=== PATIENT | female | born 1980 | race Caucasian/White ===

== ENCOUNTER 2019-11-14 01:12 | Inpatient (IN) | payer BC ==
[~2019-11-14] VITALS: Ht 165.1 cm; Wt 78.6 kg
[2019-11-14 02:07] LABS: BILIRUBIN,URINE NEGATIVE (NEG); CLARITY,URINE CLEAR; COLOR,URINE YELLOW; NITRITE,URINE NEGATIVE (NEG); PROTEIN,URINE NEGATIVE (NEG-TRACE); UROBILINOGEN,URINE 0.2 mg/dL (0.2 mg/dL)
[2019-11-14 02:13] LABS: SQUAMOUS EPITHELIAL CELL,UR FEW /LPF
[2019-11-14 02:14] LABS: AMORPHOUS SEDIMENT,UR PRESENT /HPF; BACTERIA,URINE FEW /HPF (0-FEW); RBC,URINE 0 /HPF (0-2); WBC,URINE 0 /HPF (0-4)
--- NOTE | 2019-11-14 02:17 | PHYS DOC ---
Past Medical History Past Medical History: Other Additional Past Medical Histor: APPENDECTOMY, CYST. Past Surgical History: Appendectomy, Other Additional Past Surgical Histo: CYST REMOVAL TO HEELS Smoking Status: Never Smoker Alcohol Use: None General Adult EDM: Chief Complaint: ABDOMINAL PAIN HPI: HPI: Patient is a 39-year old female presents with a chief complaint of epigastric abdominal pain. Patient states pain started around 2130 hrs. Pain is in the epigastric region diffuse in nature. Patient has associated nausea vomiting and diarrhea. Patient denies any fevers or chills or urinary symptoms. Patient has had a past surgical history of appendectomy. Review of Systems: Review of Systems: Constitutional: Denies fever or chills. [] Eyes: Denies change in visual acuity. [] HENT: Denies nasal congestion or sore throat. [] Respiratory: Denies cough or shortness of breath. [] Cardiovascular: Denies chest pain or edema. [] GI: Positive abdominal pain positive nausea positive vomiting positive diarrhea : Denies dysuria. [] Musculoskeletal: Denies back pain or joint pain. [] Integument: Denies rash. [] Neurologic: Denies headache, focal weakness or sensory changes. [] Endocrine: Denies polyuria or polydipsia. [] Lymphatic: Denies swollen glands. [] Psychiatric: Denies depression or anxiety. [] Heart Score: Risk Factors: Risk Factors: DM, Current or recent (<one month) smoker, HTN, HLP, family history of CAD, obesity. Risk Scores: Score 0 - 3: 2.5% MACE over next 6 weeks - Discharge Home Score 4 - 6: 20.3% MACE over next 6 weeks - Admit for Clinical Observation Score 7 - 10: 72.7% MACE over next 6 weeks - Early Invasive Strategies Current Medications: Current Medications Medications (Trade) Dose Ordered Sig/William Start Time Stop Time Status Last Admin Dose Admin Morphine Sulfate (Morphine Sulfate) 2 mg 1X ONCE 11/14/19 02:30 11/14/19 02:31 Ondansetron HCl (Zofran) 4 mg 1X ONCE 11/14/19 02:30 11/14/19 02:31 Sodium Chloride 1,000 ml @ 1,000 mls/hr 1X ONCE 11/14/19 02:30 11/14/19 03:29 Allergies: Allergies: Allergies Coded Allergies Type Severity Reaction Last Updated Verified No Known Drug Allergies 11/14/19 No Physical Exam: PE: Constitutional: Well developed, well nourished, no acute distress, non-toxic appearance. [Peers uncomfortable] HENT: Normocephalic, atraumatic, bilateral external ears normal, oropharynx moist, no oral exudates, nose normal. [] Eyes EOMI, conjunctiva normal, no discharge. [] Neck: Normal range of motion, no tenderness, supple, no stridor. [] Cardiovascular:Heart rate regular rhythm Lungs & Thorax: No respiratory distress Abdomen: Epigastric abdominal discomfort tender to palpation Skin: Warm, dry, no erythema, no rash. [] Back: No tenderness, no CVA tenderness. [] Extremities: No tenderness, no cyanosis, no clubbing, ROM intact, no edema. [] Neurologic: Alert and oriented X 3, normal motor function, normal sensory function, no focal deficits noted. [] Psychologic: Affect normal, judgement normal, mood normal. [] Current Patient Data: Labs: Laboratory Tests Test 11/14/19 01:50 POC Urine HCG, Qualitative Hcg negative (Negative) Vital Signs: Vital Signs Date Time Temp Pulse Resp B/P (MAP) Pulse Ox O2 Delivery O2 Flow Rate FiO2 11/14/19 01:46 97.5 47 14 166/74 (104) 100 Room Air 97.5 EKG: EKG: [] Radiology/Procedures: Radiology/Procedures: [] Impression: CT scan the abdomen pelvis was done using 75 mL Omnipaque 300 contrast. Lung bases are clear. There is no effusion. A liver lesion is not identified. There is distention of the gallbladder with a gallstone towards the neck of the gallbladder. Spleen and adrenal glands are normal. Pancreas is normal. There is no mass or hydronephrosis in the kidneys. There is scarring in the left kidney. There is no bowel obstruction or ascites. Uterus and ovaries are unremarkable. IMPRESSION: 1. Cholelithiasis with gallbladder distention. 2. Scarring left kidney, no hydronephrosis. 3. No abdominal or pelvic mass. 4. No bowel obstruction. US Cholelithiasis with distended gallbladder and mild thickening of the gallbladder wall suggesting cholecystitis. Course & Med Decision Making: Course & Med Decision Making Pertinent Labs and Imaging studies reviewed. (See chart for details) [] Patient was evaluated for chief complaint. Work-up consisted of laboratory analysis and radiologic imaging. Definitive radiologic study ultrasound shows cholelithiasis with gallbladder wall thickening consistent with acute cholecystitis. Patient was admitted to the hospitalist with general surgery on consult. Discussed patient with Dr. Melendrez @ 0500hrs Krystle Disclaimer: Krystle Disclaimer: This electronic medical record was generated, in whole or in part, using a voice recognition dictation system. Departure Departure Impression: Primary Impression: Abdominal pain Additional Impressions: Cholelithiases Acute cholecystitis Disposition: ADMITTED INPATIENT Referrals: ESCOBAR CEDENO MD (PCP) Justicifation of Admission Dx: Justifications for Admission: Justification of Admission Dx: Yes JOSE CRUZ SARMIENTO I DO Nov 14, 2019 02:17
[2019-11-14 02:20] LABS: BASO % 0 % (0-3); EOS # 0.1 x10^3/uL (0.0-0.7); EOS % 1 % (0-3); HEMATOCRIT 33.5 % (36.0-47.0); HEMOGLOBIN 11.6 g/dL (12.0-15.5); LYMPH # 1.1 x10^3/uL (1.0-4.8); LYMPH % 16 % (24-48); MEAN CORPUSCULAR HEMOGLOBIN 29 pg (25-35); MEAN CORPUSCULAR HGB CONC 35 g/dL (31-37); MEAN CORPUSCULAR VOLUME 85 fL (79-100); MONO # 0.4 x10^3/uL (0.0-1.1); MONO % 5 % (0-9); NEUT # 5.2 x10^3/uL (1.8-7.7); NEUT % 78 % (31-73); PLATELET COUNT 180 x10^3/uL (140-400); RED BLOOD COUNT 3.95 x10^6/uL (3.50-5.40); RED CELL DISTRIBUTION WIDTH 13.9 % (11.5-14.5); WHITE BLOOD COUNT 6.7 x10^3/uL (4.0-11.0)
[2019-11-14 02:27] LABS: CREATININE 0.9 mg/dL (0.6-1.0); GFR 69.3; POTASSIUM 3.5 mmol/L (3.5-5.1)
[2019-11-14] MEDS ORDERED: MORPHINE SULFATE 2 MG/ML VIAL. IV ONE (02:30)
[2019-11-14] MEDS ORDERED: CONTRAST GIVEN. MC PRN (02:30)
[2019-11-14] MEDS ORDERED: IV NORMAL SALINE 1000ML BAG 1,000 ML IV ONE (02:30)
[2019-11-14] MEDS ORDERED: ONDANSETRON PF 4 MG/2 ML VIAL. IVP ONE (02:30)
[2019-11-14 02:33] LABS: ALBUMIN 3.8 g/dL (3.4-5.0); ALBUMIN/GLOBULIN RATIO 1.1 (1.0-1.7); TOTAL BILIRUBIN 0.3 mg/dL (0.2-1.0); TOTAL PROTEIN 7.4 g/dL (6.4-8.2)
[2019-11-14] MEDS ORDERED: IOHEXOL 300 MG/ML 100ML VIAL. IV ONE (03:00)
--- NOTE | 2019-11-14 03:09 | RAD ---
CT abdomen pelvis with contrast. HISTORY: Abdominal pain CT scan the abdomen pelvis was done using 75 mL Omnipaque 300 contrast. Lung bases are clear. There is no effusion. A liver lesion is not identified. There is distention of the gallbladder with a gallstone towards the neck of the gallbladder. Spleen and adrenal glands are normal. Pancreas is normal. There is no mass or hydronephrosis in the kidneys. There is scarring in the left kidney. There is no bowel obstruction or ascites. Uterus and ovaries are unremarkable. IMPRESSION: 1. Cholelithiasis with gallbladder distention. 2. Scarring left kidney, no hydronephrosis. 3. No abdominal or pelvic mass. 4. No bowel obstruction. PQRS Compliance Statement: One or more of the following individualized dose reduction techniques were utilized for this examination: 1. Automated exposure control 2. Adjustment of the mA and/or kV according to patient size 3. Use of iterative reconstruction technique Electronically signed by: Reji Sesay MD (11/14/2019 3:06 AM) [id number]
[2019-11-14] MEDS ORDERED: MORPHINE SULFATE 4 MG/ML VIAL. IV ONE (03:30)
[2019-11-14] MEDS: METOCLOPRAMIDE HCL 10 MG/2 ML VIAL. IVP ONE ×2 (03:32→04:00)
--- NOTE | 2019-11-14 04:13 | RAD ---
Ultrasound the abdomen limited. HISTORY: Right upper quadrant abdominal pain Ultrasound was used to evaluate the right upper quadrant of the abdomen. Pancreas was normal in appearance. Liver is within normal limits in size and appearance. A focal liver lesion was not identified. There is a prominent gallstone in the gallbladder. There is mild gallbladder wall thickening. Gallbladder was distended. Common duct was upper normal at 6 mm. Right kidney was 11 cm in length without hydronephrosis. IMPRESSION: 1. Cholelithiasis with distended gallbladder and mild thickening of the gallbladder wall suggesting cholecystitis. Electronically signed by: Reji Sesay MD (11/14/2019 4:10 AM) [id number]
[2019-11-14] MEDS ORDERED: PIPERACILLIN/TAZOBACTAM 4.5 GM in IV NORMAL SALINE 100ML 100 ML IV ONE (05:00)
[2019-11-14] MEDS ORDERED: HYDROmorphone 2 MG/ML VIAL IV ONE (05:00)
[2019-11-14] MEDS: IV RINGERS,LACTATED 1000ML 1,000 ML IV SCH ×2 (09:01→17:00)
[2019-11-14] MEDS ORDERED: LEVO75TA90 PO (09:12)
[2019-11-14] MEDS ORDERED: LIOT5TAB4 PO (09:12)
[2019-11-14] MEDS ORDERED: [UNRECOGNIZED DRUG - CODE] PO (09:12)
[2019-11-14] MEDS ORDERED: MAGN500C10 PO (09:12)
[2019-11-14] MEDS ORDERED: FLUV50TA2 PO (09:12)
[2019-11-14] MEDS ORDERED: PROCHLORPERAZINE 10 MG/2 ML VIAL. IV PRN (09:15)
[2019-11-14] MEDS ORDERED: MORPHINE SULFATE 2 MG/ML VIAL. IV PRN (09:15)
[2019-11-14] MEDS ORDERED: ONDANSETRON PF 4 MG/2 ML VIAL. IV PRN (09:15)
[2019-11-14] MEDS ORDERED: LIDOCAINE 1% PF 2 ML VIAL. ID PRN (09:15)
[2019-11-14] MEDS ORDERED: fentaNYL PF VIAL 100 MCG/2 ML VIAL IV PRN ×2 (09:15)
[2019-11-14] MEDS ORDERED: HYDROmorphone 2 MG/ML VIAL IV PRN (09:15)
--- NOTE | 2019-11-14 11:03 | NUR ---
SW following. Discussed with RN, pt from home, room air, surgery pending COVID-19 result. RN advised no SW needs. SW will continue to follow should any discharge needs arise.
[2019-11-14 11:15] VITALS: BP 147/87
--- NOTE | 2019-11-14 11:41 | HP ---
ADMIT DATE: 11/14/2019 CHIEF COMPLAINT: Abdominal pain, nausea, vomiting. HISTORY OF PRESENT ILLNESS: The patient is a pleasant 39-year-old female who presented with the above chief complaint. Basically, she has had abdominal pain for a couple of days. It got worse last night at about 9:30. She had some associated nausea. We did some imaging. It is showing she has gallstones. We have admitted the patient. She is now going for surgery this afternoon. PAST MEDICAL AND SURGICAL HISTORY: Appendectomy and heel cyst. ALLERGIES: None. FAMILY HISTORY: Diabetes. SOCIAL HISTORY: She does not drink, smoke or take drugs. 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 MEDICATIONS: Reviewed. Please refer to the MRAD. REVIEW OF SYSTEMS: GENERAL: No history of weight change, weakness or fevers. SKIN: No bruising, hair changes or rashes. EYES: No blurred, double or loss of vision. NOSE AND THROAT: No history of nosebleeds, hoarseness or sore throat. HEART: No history of palpitations, chest pain or shortness of breath on exertion. LUNGS: Denies cough, hemoptysis, wheezing or shortness of breath. GASTROINTESTINAL: She complains of abdominal pain and nausea. Denies changes in appetite, vomiting, diarrhea or constipation. GENITOURINARY: No history of frequency, urgency, hesitancy or nocturia. NEUROLOGIC: Denies history of numbness, tingling, tremor or weakness. PSYCHIATRIC: No history of panic, anxiety or depression. ENDOCRINE: No history of heat or cold intolerance, polyuria or polydipsia. EXTREMITIES: Denies muscle weakness, joint pain, pain on walking or stiffness. PHYSICAL EXAMINATION: VITAL SIGNS: Within normal limits and are stable. GENERAL: No apparent distress. Alert and oriented. HEENT: Normal cephalic atraumatic, external auditory canals are patent EYES: Extraocular muscles are intact, pupils are equally round and reactive to light and accommodation MUSCULOSKELETAL: Well developed, well nourished, good range of motion ENDOCRINE: No thyromegaly was palpated LYMPHATICS: No cervical chain or axillary nodes were noted HEMATOPOIETIC: No bruising NECK: Supple, no JVD, no thyromegaly was noted. LUNGS: Clear to auscultation in all lung aviles without rhonchi or wheezing. HEART: RRR, S1, S2 present. Peripheral pulses intact, no obvious murmurs were noted. ABDOMEN: Soft. She has right upper quadrant pain to palpation. Positive bowel sounds. No organomegaly. Normal bowel sounds. EXTREMITIES: Without any cyanosis, clubbing, or edema. Pedal pulses intact, Homans sign is negative. NEUROLOGIC: Normal speech, normal tone. A & O x3, moves all extremities, no obvious focal deficits. PSYCHIATRIC: Normal affect, normal mood. Stable. SKIN: She has multiple tattoos. No ulcerations or rashes, good skin turgor, no jaundice. VASCULAR: Good capillary refill, neurovascular bundle appears to be intact. IMAGING: Ultrasound of the abdomen is showing gallstones. LABORATORY DATA: Hemoglobin is 11.6. Transaminases are within normal limits. ASSESSMENT AND PLAN: Symptomatic gallstones. The patient has been admitted. We have given her p.r.n. pain meds and nausea meds. We have consulted General Surgery. She is going to Surgery this afternoon. JUANITA COOK DO DR: MARIBETH/cristal JOB#: [id number] / [id number]
[2019-11-14] MEDS ORDERED: PROPOFOL 10 MG/ML (20ML) VIAL. IV ONE (13:40)
[2019-11-14] MEDS ORDERED: SUCCINYLCHOLINE 200 MG/10 ML VIAL. ONE (13:40)
[2019-11-14] MEDS ORDERED: ROCURONIUM 50 MG/5 ML VIAL. ONE (13:40)
[2019-11-14] MEDS ORDERED: fentaNYL PF VIAL 100 MCG/2 ML VIAL ONE (13:41)
[2019-11-14] MEDS ORDERED: BUTORPHANOL 2 MG/ML VIAL. IV PRN (13:45)
[2019-11-14] MEDS: BUTORPHANOL 2 MG/ML VIAL. IV PRN (13:53)
[2019-11-14] MEDS ORDERED: BUPIVACAINE MPF 0.5% 30 ML VIAL. ONE (14:16)
[2019-11-14] MEDS ORDERED: IOHEXOL 300 MG/ML 50 ML VIAL. ONE (14:16)
[2019-11-14] MEDS ORDERED: MIDAZOLAM HCL/PF 2 MG/2 ML VIAL. ONE (15:39)
[2019-11-14] MEDS ORDERED: GLYCOPYRROLATE 1 MG/5 ML VIAL. ONE (16:09)
[2019-11-14] MEDS ORDERED: NEOSTIGMINE METHYLSULFATE 5 MG/5 ML SYRINGE. ONE (16:38)
--- NOTE | 2019-11-14 16:42 | RAD ---
Examination: CHOLANGIOGRAM INTRAOPERATIVE History: Reason: CHOLANGIOGRAM W/C-ARM FT- 8sec / Spl. Instructions: / History: Comparison/Correlation: 11/14/2019 CT abdomen and pelvis with IV contrast Findings: Fluoroscopy was utilized for a 0.1 seconds. A total of 2 images of the right upper quadrant were provided by fluoroscopy. Cholecystectomy clips are present. Contrast is present within the common bile duct and partially opacified intrahepatic biliary tree. There is no stricture identified. No definite suspicious filling defect within the common duct. Contrast is noted in the duodenum. Impression: Cholecystectomy. No strictures or findings to suggest calculus or other suspicious filling defect. Electronically signed by: Neil Mckinnon MD (11/14/2019 4:39 PM) [id number]
--- NOTE | 2019-11-14 16:57 | PDOC2 ---
CONSULT Date of Consult Date of Consult DATE: 11/14/19 TIME: 16:55 History of Present Illness Reason for Visit: The patient is a 39-year-old female who presented to the emergency department with acute onset of abdominal pain. The pain began last evening and was located in the upper mid abdomen under the rib cage. Her evaluation in the emergency room is consistent with acute cholecystitis. Past Medical History Past Medical History ADD, OCD Past Surgical History Past Surgical History Appendectomy Social History No Current Problem List Problem List Problems Medical Problems: (1) Abdominal pain Status: Acute (2) Acute cholecystitis Status: Acute (3) Cholelithiases Status: Acute Current Medications Current Medications Current Medications Morphine Sulfate (Morphine Sulfate) 2 mg 1X ONCE IV Last administered on 11/14/19at 02:18; Start 11/14/19 at 02:30; Stop 11/14/19 at 02:31; Status DC Ondansetron HCl (Zofran) 4 mg 1X ONCE IVP Last administered on 11/14/19at 02:18; Start 11/14/19 at 02:30; Stop 11/14/19 at 02:31; Status DC Sodium Chloride 1,000 ml @ 1,000 mls/hr 1X ONCE IV Last administered on 11/14/19at 02:23; Start 11/14/19 at 02:30; Stop 11/14/19 at 03:29; Status DC Iohexol (Omnipaque 300 Mg/ml) 75 ml 1X ONCE IV Last administered on 11/14/19at 02:51; Start 11/14/19 at 03:00; Stop 11/14/19 at 03:01; Status DC Info (CONTRAST GIVEN -- Rx MONITORING) 1 each PRN DAILY PRN MC SEE COMMENTS; Start 11/14/19 at 02:30; Stop 11/16/19 at 02:29 Morphine Sulfate (Morphine Sulfate) 4 mg 1X ONCE IV Last administered on 11/14/19at 03:20; Start 11/14/19 at 03:30; Stop 11/14/19 at 03:31; Status DC Metoclopramide HCl (Reglan Vial) 10 mg 1X ONCE IVP ; Start 11/14/19 at 04:00; Stop 11/14/19 at 04:01; Status DC Hydromorphone HCl (Dilaudid) 1 mg 1X ONCE IV Last administered on 11/14/19at 04:37; Start 11/14/19 at 05:00; Stop 11/14/19 at 05:01; Status DC Piperacillin Sod/ Tazobactam Sod 4.5 gm/Sodium Chloride 100 ml @ 200 mls/hr 1X ONCE IV Last administered on 11/14/19at 04:46; Start 11/14/19 at 05:00; Stop 11/14/19 at 05:29; Status DC Ondansetron HCl (Zofran) 4 mg PRN Q6HRS PRN IV NAUSEA/VOMITING Last administered on 11/14/19at 13:52; Start 11/14/19 at 09:15; Stop 11/15/19 at 09:14 Fentanyl Citrate (Fentanyl 2ml Vial) 25 mcg PRN Q5MIN PRN IV MILD PAIN 1-3; Start 11/14/19 at 09:15; Stop 11/15/19 at 09:14 Fentanyl Citrate (Fentanyl 2ml Vial) 50 mcg PRN Q5MIN PRN IV MODERATE TO SEVERE PAIN; Start 11/14/19 at 09:15; Stop 11/15/19 at 09:14 Morphine Sulfate (Morphine Sulfate) 1 mg PRN Q10MIN PRN IV SEVERE PAIN 7-10; Start 11/14/19 at 09:15; Stop 11/15/19 at 09:14 Ringer's Solution 1,000 ml @ 30 mls/hr Q24H IV ; Start 11/14/19 at 09:01; Stop 11/14/19 at 21:00 Lidocaine HCl (Xylocaine-Mpf 1% 2ml Vial) 2 ml PRN 1X PRN ID PRIOR TO IV START; Start 11/14/19 at 09:15; Stop 11/15/19 at 09:14 Hydromorphone HCl (Dilaudid) 0.5 mg PRN Q10MIN PRN IV SEV PAIN, Second choice; Start 11/14/19 at 09:15; Stop 11/15/19 at 09:14 Prochlorperazine Edisylate (Compazine) 5 mg PACU PRN PRN IV NAUSEA, MRX1; Start 11/14/19 at 09:15; Stop 11/15/19 at 09:14 Propofol (Diprivan) 200 mg STK-MED ONCE IV ; Start 11/14/19 at 13:40; Stop 11/14/19 at 13:40; Status DC Succinylcholine Chloride (Anectine) 200 mg STK-MED ONCE .ROUTE ; Start 11/14/19 at 13:40; Stop 11/14/19 at 13:41; Status DC Rocuronium [place] (Zemuron) 50 mg STK-MED ONCE .ROUTE ; Start 11/14/19 at 13:40; Stop 11/14/19 at 13:41; Status DC Fentanyl Citrate (Fentanyl 2ml Vial) 100 mcg STK-MED ONCE .ROUTE ; Start 11/14/19 at 13:41; Stop 11/14/19 at 13:41; Status DC Butorphanol Tartrate (Stadol) 2 mg PRN Q6HRS PRN IV PAIN Last administered on 11/14/19at 13:53; Start 11/14/19 at 13:45 Butorphanol Tartrate (Stadol) 1 mg PRN Q6HRS PRN IV PAIN; Start 11/14/19 at 13:45 Iohexol (Omnipaque 300 Mg/ml) 50 ml STK-MED ONCE .ROUTE Last administered on 11/14/19at 16:08; Start 11/14/19 at 14:16; Stop 11/14/19 at 14:17; Status DC Bupivacaine HCl (Sensorcaine Mpf 0.5%) 30 ml STK-MED ONCE .ROUTE Last administered on 11/14/19at 16:08; Start 11/14/19 at 14:16; Stop 11/14/19 at 14:17; Status DC Midazolam HCl (Versed) 2 mg STK-MED ONCE .ROUTE ; Start 11/14/19 at 15:39; Stop 11/14/19 at 15:39; Status DC Glycopyrrolate (Robinul) 1 mg STK-MED ONCE .ROUTE ; Start 11/14/19 at 16:09; Stop 11/14/19 at 16:09; Status DC Neostigmine [place] (Neostigmine Methylsulfate) 5 mg STK-MED ONCE .ROUTE ; Start 11/14/19 at 16:38; Stop 11/14/19 at 16:39; Status DC Active Scripts Active Reported Liothyronine Sodium 5 Mcg Tablet 5 Mcg PO DAILY Magnesium (Magnesium Oxide) 500 Mg Capsule 500 Mg PO HS Fluvoxamine Maleate 50 Mg Tablet 50 Mg PO BID Adderall 12.5 Mg Tablet (Dextroamphetamine/Amphetamine) 12.5 Mg Tablet 12.5 Mg PO DAILY Synthroid (Levothyroxine Sodium) 75 Mcg Tablet 75 Mcg PO DAILYAC Allergies Allergies: Coded Allergies: No Known Drug Allergies (Unverified , 11/14/19) ROS General: No: Chills, Night Sweats, Fatigue, Malaise, Appetite, Other PSYCHOLOGICAL ROS: No: Anxiety, Behavioral Disorder, Concentration difficultie, Decreased libido, Depression, Disorientation, Hallucinations, Hostility, Irritablity, Memory difficulties, Mood Swings, Obsessive thoughts, Physical a buse, Sexual abuse, Sleep disturbances, Suicidal ideation, Other Eyes: No Blurry vision, No Decreased vision, No Double vision, No Dry eyes, No Excessive tearing, No Eye Pain, No Itchy Eyes, No Loss of vision, No Photophobia, No Scotomata, No Uses contacts, No Uses glasses, No Other HEENT: No: Heacaches, Visual Changes, Hearing change, Nasal congestion, Nasal discharge, Oral lesions, Sinus pain, Sore Throat, Epistaxis, Sneezing, Snoring, Tinnitus, Vertigo, Vocal changes, Other ALLERGY AND IMMUNOLOGY: No: Hives, Insect Bite Sensitivity, Itchy/Watery Eyes, Nasal Congestion, Post Nasal Drip, Seasonal Allergies, Other Hematological and Lymphatic: No: Bleeding Problems, Blood Clots, Blood Transfusions, Brusing, Night Sweats, Pallor, Swollen Lymph Nodes, Other ENDOCRINE: No: Breast Changes, Galactorrhea, Hair Pattern Changes, Hot Flashes, Malaise/lethargy, Mood Swings, Palpitations, Polydipsia/polyuria, Skin Changes, Temperature Intolerance, Unexpected Weight Changes, Other Respiratory: No: Cough, Hemoptysis, Orthopnea, Pleuritic Pain, Shortness of breath, SOB with excertion, Sputum Changes, Stridor, Tachypnea, Wheezing, Other Cardiovascular: No Chest Pain, No Palpitations, No Orthopnea, No Paroxysmal Noc. Dyspnea, No Edema, No Lt Headedness, No Other Gastrointestinal: Yes Abdominal Pain Genitourinary: No Dysuria, No Frequency, No Incontinence, No Hematuria, No Retention, No Discharge, No Urgency, No Pain, No Flank Pain, No Other, No , No , No , No , No , No , No Musculoskeletal: No Gait Disturbance, No Joint Pain, No Joint Stiffness, No Joint Swelling, No Muscle Pain, No Muscular Weakness, No Pain In:, No Swelling In:, No Other Neurological: No Behavorial Changes, No Bowel/Bladder ControlChng, No Confusion, No Dizziness, No Gait Disturbance, No Headaches, No Impaired Coord/balance, No Memory Loss, No Numbness/Tingling, No Seizures, No Speech Problems, No Tremors, No Visual Changes, No Weakness, No Other Skin: No Dry Skin, No Eczema, No Hair Changes, No Lumps, No Mole Changes, No Mottling, No Nail Changes, No Pruritus, No Rash, No Skin Lesion Changes, No Other, No Acne Physical Exam General: Alert, Oriented X3, Cooperative HEENT: Atraumatic Lungs: Clear to auscultation Abdomen: Soft (Tender to palpation the right upper quadrant with guarding) Extremities: No clubbing, No cyanosis Skin: No rashes Neuro: Normal speech Psych/Mental Status: Mental status NL Vitals VITALS Vital Signs Date Time Temp Pulse Resp B/P (MAP) Pulse Ox O2 Delivery O2 Flow Rate FiO2 11/14/19 15:28 87 20 122/72 99 Room Air 11/14/19 15:00 97.6 97.6 Labs Labs Laboratory Tests Test 11/14/19 01:11 11/14/19 01:32 11/14/19 01:50 11/14/19 05:07 White Blood Count 6.7 x10^3/uL (4.0-11.0) Red Blood Count 3.95 x10^6/uL (3.50-5.40) Hemoglobin 11.6 g/dL (12.0-15.5) Hematocrit 33.5 % (36.0-47.0) Mean Corpuscular Volume 85 fL (79-100) Mean Corpuscular Hemoglobin 29 pg (25-35) Mean Corpuscular Hemoglobin Concent 35 g/dL (31-37) Red Cell Distribution Width 13.9 % (11.5-14.5) Platelet Count 180 x10^3/uL (140-400) Neutrophils (%) (Auto) 78 % (31-73) Lymphocytes (%) (Auto) 16 % (24-48) Monocytes (%) (Auto) 5 % (0-9) Eosinophils (%) (Auto) 1 % (0-3) Basophils (%) (Auto) 0 % (0-3) Neutrophils # (Auto) 5.2 x10^3/uL (1.8-7.7) Lymphocytes # (Auto) 1.1 x10^3/uL (1.0-4.8) Monocytes # (Auto) 0.4 x10^3/uL (0.0-1.1) Eosinophils # (Auto) 0.1 x10^3/uL (0.0-0.7) Basophils # (Auto) 0.0 x10^3/uL (0.0-0.2) Sodium Level 137 mmol/L (136-145) Potassium Level 3.5 mmol/L (3.5-5.1) Chloride Level 100 mmol/L (98-107) Carbon Dioxide Level 27 mmol/L (21-32) Anion Gap 10 (6-14) Blood Urea Nitrogen 17 mg/dL (7-20) Creatinine 0.9 mg/dL (0.6-1.0) Estimated GFR (Cockcroft-Gault) 69.3 BUN/Creatinine Ratio 19 (6-20) Glucose Level 141 mg/dL (70-99) Calcium Level 9.0 mg/dL (8.5-10.1) Total Bilirubin 0.3 mg/dL (0.2-1.0) Aspartate Amino Transf (AST/SGOT) 22 U/L (15-37) Alanine Aminotransferase (ALT/SGPT) 20 U/L (14-59) Alkaline Phosphatase 52 U/L (46-116) Total Protein 7.4 g/dL (6.4-8.2) Albumin 3.8 g/dL (3.4-5.0) Albumin/Globulin Ratio 1.1 (1.0-1.7) Lipase 123 U/L (73-393) Urine Collection Type Unknown Urine Color Yellow Urine Clarity Clear Urine pH 6.0 (<5.0-8.0) Urine Specific [place] 1.025 (1.000-1.030) Urine Protein Negative mg/dL (NEG-TRACE) Urine Glucose (UA) Negative mg/dL (NEG) Urine Ketones (Stick) Negative mg/dL (NEG) Urine Blood Negative (NEG) Urine Nitrite Negative (NEG) Urine Bilirubin Negative (NEG) Urine Urobilinogen Dipstick 0.2 mg/dL (0.2 mg/dL) Urine Leukocyte Esterase Negative (NEG) Urine RBC 0 /HPF (0-2) Urine WBC 0 /HPF (0-4) Urine Squamous Epithelial Cells Few /LPF Urine Amorphous Sediment Present /HPF Urine Bacteria Few /HPF (0-FEW) Urine Mucus Mod /LPF Bedside Urine HCG, Qualitative Hcg negative (Negative) Coronavirus (COVID-19)(PCR) Negative (NEGATIVE) Laboratory Tests Test 11/14/19 01:11 11/14/19 01:32 11/14/19 01:50 11/14/19 05:07 White Blood Count 6.7 x10^3/uL (4.0-11.0) Red Blood Count 3.95 x10^6/uL (3.50-5.40) Hemoglobin 11.6 g/dL (12.0-15.5) Hematocrit 33.5 % (36.0-47.0) Mean Corpuscular Volume 85 fL (79-100) Mean Corpuscular Hemoglobin 29 pg (25-35) Mean Corpuscular Hemoglobin Concent 35 g/dL (31-37) Red Cell Distribution Width 13.9 % (11.5-14.5) Platelet Count 180 x10^3/uL (140-400) Neutrophils (%) (Auto) 78 % (31-73) Lymphocytes (%) (Auto) 16 % (24-48) Monocytes (%) (Auto) 5 % (0-9) Eosinophils (%) (Auto) 1 % (0-3) Basophils (%) (Auto) 0 % (0-3) Neutrophils # (Auto) 5.2 x10^3/uL (1.8-7.7) Lymphocytes # (Auto) 1.1 x10^3/uL (1.0-4.8) Monocytes # (Auto) 0.4 x10^3/uL (0.0-1.1) Eosinophils # (Auto) 0.1 x10^3/uL (0.0-0.7) Basophils # (Auto) 0.0 x10^3/uL (0.0-0.2) Sodium Level 137 mmol/L (136-145) Potassium Level 3.5 mmol/L (3.5-5.1) Chloride Level 100 mmol/L (98-107) Carbon Dioxide Level 27 mmol/L (21-32) Anion Gap 10 (6-14) Blood Urea Nitrogen 17 mg/dL (7-20) Creatinine 0.9 mg/dL (0.6-1.0) Estimated GFR (Cockcroft-Gault) 69.3 BUN/Creatinine Ratio 19 (6-20) Glucose Level 141 mg/dL (70-99) Calcium Level 9.0 mg/dL (8.5-10.1) Total Bilirubin 0.3 mg/dL (0.2-1.0) Aspartate Amino Transf (AST/SGOT) 22 U/L (15-37) Alanine Aminotransferase (ALT/SGPT) 20 U/L (14-59) Alkaline Phosphatase 52 U/L (46-116) Total Protein 7.4 g/dL (6.4-8.2) Albumin 3.8 g/dL (3.4-5.0) Albumin/Globulin Ratio 1.1 (1.0-1.7) Lipase 123 U/L (73-393) Urine Collection Type Unknown Urine Color Yellow Urine Clarity Clear Urine pH 6.0 (<5.0-8.0) Urine Specific [place] 1.025 (1.000-1.030) Urine Protein Negative mg/dL (NEG-TRACE) Urine Glucose (UA) Negative mg/dL (NEG) Urine Ketones (Stick) Negative mg/dL (NEG) Urine Blood Negative (NEG) Urine Nitrite Negative (NEG) Urine Bilirubin Negative (NEG) Urine Urobilinogen Dipstick 0.2 mg/dL (0.2 mg/dL) Urine Leukocyte Esterase Negative (NEG) Urine RBC 0 /HPF (0-2) Urine WBC 0 /HPF (0-4) Urine Squamous Epithelial Cells Few /LPF Urine Amorphous Sediment Present /HPF Urine Bacteria Few /HPF (0-FEW) Urine Mucus Mod /LPF Bedside Urine HCG, Qualitative Hcg negative (Negative) Coronavirus (COVID-19)(PCR) Negative (NEGATIVE) Assessment/Plan Assessment/Plan Suspect acute cholecystitis, recommend laparoscopic cholecystectomy. The details and risks of surgery were discussed with the patient. She understands and would like to proceed. CHRIS ALAN MD Nov 14, 2019 16:57
--- NOTE | 2019-11-14 16:59 | PDOC4 ---
Operative Note Operative Note Operative Note: Preoperative Diagnosis: Acute cholecystitis Postoperative Diagnosis: Same Procedure: Laparoscopic cholecystectomy with intraoperative cholangiogram Surgeons: Aneesh Blanket Cutting Machine Operator: Sera ZUNIGA Anesthesia: Gen. Estimated Blood Loss: 10 mL Specimen: Gallbladder to pathology Drains: None Complications: None Indications: The patient is a 39-year-old female who presented to the emergency department with abdominal pain. Her evaluation is consistent with acute cholecystitis. Surgical treatment was offered by means of a laparoscopic cholecystectomy. The risks of surgery were discussed which include bleeding, infection, bile duct injury, bile leak, pain, the potential for additional surgeries or procedures. The patient understands and would like to proceed. Description: The patient was taken to the operating room and laid supine on the operating table. General anesthesia was performed. The abdomen was prepped wi th ChloraPrep and draped in a standard surgical fashion. A small infraumbilical incision was made with a scalpel. The Veress needle was then inserted and a pneumoperitoneum was then created. A 5 mm trocar was then inserted and the laparoscope was introduced. In the upper midabdomen an 11 mm trocar was inserted and in the right upper quadrant two 5 mm trocar were inserted. The gallbladder was distended and tense with inflammatory change consistent with acute cholecystitis. Over 50 mLs of bilious fluid was aspirated providing gallbladder decompression. The gallbladder was retracted cephalad. The cystic duct was dissected free from surrounding tissues. One clip was placed on the duct near the gallbladder junction. An opening was made in the duct and a cholangiocatheter placed within and secured with a clip. Using contrast dye and fluoroscopy an intraoperative cholangiogram was performed that appeared unremarkable. The clip and catheter were then withdrawn. Three clips were placed on the cystic duct and it was divided. The cystic artery was then identified, dissected free, doubly clipped and divided as well. The gallbladder was then mobilized away from the liver with cautery. The gallbladder was then placed in an endoscopic bag and extracted at the superior trocar site. The fascia there was closed with an 0 PDS sutures. All blood and irrigation fluid was suctioned and hemostasis was good. The remaining ports were removed and the pneumoperitoneum was relieved. The skin incisions were closed using 4-0 Monocryl suture. Steri-Strips and dressings were then applied. The patient tolerated the procedure well and was sent to the recovery room in stable condition. At the end of the case all counts were correct. CHRIS ALAN MD Nov 14, 2019 16:59
[2019-11-14] MEDS ORDERED: oxyCODONE/APAP 5/325 1 TAB TABLET PO PRN ×2 (17:00→17:15)
[2019-11-14 19:00] VITALS: BP 121/73
[2019-11-14 23:00] VITALS: BP 105/50
[2019-11-15 03:00] VITALS: BP 108/50
[2019-11-15 07:00] VITALS: BP 98/46
[2019-11-15] MEDS: BUTORPHANOL 2 MG/ML VIAL. IV PRN (07:30)
--- NOTE | 2019-11-15 10:05 | PDOC ---
SURGICAL PROGRESS NOTE Subjective Patient doing well tolerated diet does complain of some incisional pain Vital Signs Vital Signs Date Time Temp Pulse Resp B/P (MAP) Pulse Ox O2 Delivery O2 Flow Rate FiO2 11/15/19 08:00 Room Air 11/15/19 07:00 98.8 76 18 98/46 (63) 94 98.8 11/14/19 20:00 10.0 I&O Intake and Output 11/15/19 07:00 Intake Total 1300 ml Output Total 210 ml Balance 1090 ml Intake Oral 300 ml IV Total 1000 ml Output Urine Total 200 ml Estimated Blood Loss 10 ml # Voids 2 PATIENT HAS A THOMPSON: No General: Alert, Oriented X3, Cooperative, mild distress Abdomen: Normal bowel sounds, Soft, Other (Mild incisional tenderness wounds cl ole[place]andr dry and intact) Labs Laboratory Tests Test 11/14/19 01:11 11/14/19 01:32 11/14/19 01:50 11/14/19 05:07 White Blood Count 6.7 x10^3/uL (4.0-11.0) Red Blood Count 3.95 x10^6/uL (3.50-5.40) Hemoglobin 11.6 g/dL (12.0-15.5) Hematocrit 33.5 % (36.0-47.0) Mean Corpuscular Volume 85 fL (79-100) Mean Corpuscular Hemoglobin 29 pg (25-35) Mean Corpuscular Hemoglobin Concent 35 g/dL (31-37) Red Cell Distribution Width 13.9 % (11.5-14.5) Platelet Count 180 x10^3/uL (140-400) Neutrophils (%) (Auto) 78 % (31-73) Lymphocytes (%) (Auto) 16 % (24-48) Monocytes (%) (Auto) 5 % (0-9) Eosinophils (%) (Auto) 1 % (0-3) Basophils (%) (Auto) 0 % (0-3) Neutrophils # (Auto) 5.2 x10^3/uL (1.8-7.7) Lymphocytes # (Auto) 1.1 x10^3/uL (1.0-4.8) Monocytes # (Auto) 0.4 x10^3/uL (0.0-1.1) Eosinophils # (Auto) 0.1 x10^3/uL (0.0-0.7) Basophils # (Auto) 0.0 x10^3/uL (0.0-0.2) Sodium Level 137 mmol/L (136-145) Potassium Level 3.5 mmol/L (3.5-5.1) Chloride Level 100 mmol/L (98-107) Carbon Dioxide Level 27 mmol/L (21-32) Anion Gap 10 (6-14) Blood Urea Nitrogen 17 mg/dL (7-20) Creatinine 0.9 mg/dL (0.6-1.0) Estimated GFR (Cockcroft-Gault) 69.3 BUN/Creatinine Ratio 19 (6-20) Glucose Level 141 mg/dL (70-99) Calcium Level 9.0 mg/dL (8.5-10.1) Total Bilirubin 0.3 mg/dL (0.2-1.0) Aspartate Amino Transf (AST/SGOT) 22 U/L (15-37) Alanine Aminotransferase (ALT/SGPT) 20 U/L (14-59) Alkaline Phosphatase 52 U/L (46-116) Total Protein 7.4 g/dL (6.4-8.2) Albumin 3.8 g/dL (3.4-5.0) Albumin/Globulin Ratio 1.1 (1.0-1.7) Lipase 123 U/L (73-393) Urine Collection Type Unknown Urine Color Yellow Urine Clarity Clear Urine pH 6.0 (<5.0-8.0) Urine Specific [place] 1.025 (1.000-1.030) Urine Protein Negative mg/dL (NEG-TRACE) Urine Glucose (UA) Negative mg/dL (NEG) Urine Ketones (Stick) Negative mg/dL (NEG) Urine Blood Negative (NEG) Urine Nitrite Negative (NEG) Urine Bilirubin Negative (NEG) Urine Urobilinogen Dipstick 0.2 mg/dL (0.2 mg/dL) Urine Leukocyte Esterase Negative (NEG) Urine RBC 0 /HPF (0-2) Urine WBC 0 /HPF (0-4) Urine Squamous Epithelial Cells Few /LPF Urine Amorphous Sediment Present /HPF Urine Bacteria Few /HPF (0-FEW) Urine Mucus Mod /LPF Bedside Urine HCG, Qualitative Hcg negative (Negative) Coronavirus (COVID-19)(PCR) Negative (NEGATIVE) Problem List Problems Medical Problems: (1) Abdominal pain Status: Acute (2) Acute cholecystitis Status: Acute (3) Cholelithiases Status: Acute Assessment/Plan Status post cholecystectomy surgically stable from surgical point of view may be discharged home Follow-up Dr. Melendrez in 2 weeks Justicifation of Admission Dx: Justifications for Admission: Justification of Admission Dx: Yes SARAH MURILLO MD Nov 15, 2019 10:05
[2019-11-15 11:00] VITALS: BP 101/59
--- NOTE | 2019-11-15 12:38 | DS ---
DATE OF DISCHARGE: 11/15/2019 ADMISSION DIAGNOSIS: Cholecystitis. DISCHARGE DIAGNOSIS: Postop day #1 laparoscopic cholecystectomy. HOSPITAL COURSE: The patient is a pleasant 39-year-old female who presented with cholecystitis. She was admitted. We consulted General Surgery. She was taken for a laparoscopic cholecystectomy last night. This morning, I saw her and examined her. She looks great and wants to go home. Heart tones are normal. Lungs are clear. Abdomen is soft. We plan to discharge. DISPOSITION: Home. ACTIVITY: As tolerated. DIET: Low sodium. MEDICATIONS: Please see the MRAD. TOTAL TIME: 33 minutes. JOSEPHL Bulmaro COOK DO DR: MARIBETH/cristal JOB#: [id number] / [id number]
== END 2019-11-15 12:28 | disposition home or self-care (01) | DRG 419 ==
LOC: ER 01:12 → OBSVTOIN 04:24 → ED HOLD 04:24 → 4 NORTH 07:30
PROVIDERS: ADMIT Internal Medicine; ATTEND Internal Medicine
PROC: BF131ZZ Fluoroscopy of Gallbladder and Bile Ducts using Low Osmolar Contrast (ICD-10-PCS; 2019-11-14)
PROC: 0FT44ZZ Resection of Gallbladder, Percutaneous Endoscopic Approach (ICD-10-PCS; principal; 2019-11-14 15:30)
DX: K80.00 Calculus of gallbladder with acute cholecystitis without obstruction (principal); K82.8 Other specified diseases of gallbladder; Z20.828 Contact with and (suspected) exposure to other viral communicable diseases; Z83.3 Family history of diabetes mellitus; Z90.49 Acquired absence of other specified parts of digestive tract
CPT/HCPCS: 36415; 74177; 74300; 76705; 80053; 81001; 81025; 83690; 85025; 96361; 96365; 96375; 96376; 99285; J0330; J0595; J1170; J2250; J2270; J2405; J2543; J2704; J2710; J2765; J3010; J3490; J7030; J7120; Q9967; G0378; U0003-CS

== ENCOUNTER → 2020-05-25 | Outpatient (CLI) | payer BC ==
[~2020-05-25] MED LIST: CONTRAST GIVEN. MC PRN; FLUV50TA2 PO; IOHEXOL 240 MG/ML 50ML VIAL. PO ONE; IOHEXOL 300 MG/ML 100ML VIAL. IV ONE; LEVO75TA90 PO; LIOT5TAB4 PO; MAGN500C10 PO; [UNRECOGNIZED DRUG - CODE] PO
--- NOTE | 2020-05-25 17:58 | RAD ---
EXAM: CT Abdomen and Pelvis with IV contrast INDICATION: Reason: ABDOMINAL WALL HERNIA / Spl. Instructions: IV OMNI 300 75 MLS AND PO OMNI 240 50 MLS / History: TECHNIQUE: Multi-detector row CT images were acquired from the lung bases through the abdomen and pel vis with the use of IV contrast. Sagittal and coronal images were acquired from the transaxial data. All CT scans performed at this facility utilize dose optimization techniques as appropriate to the ex am, including the following: Automated exposure control and adjustment of the mA and/or KV according to patient size (this includes techniques or standardized protocols for targeted exams where dose is indication/reason for exam). IV CONTRAST: Administered ORAL CONTRAST: administered COMPARISON: Contrast-enhanced abdomen pelvis CT of 11/14/2019 FINDINGS: LOWER CHEST: Unremarkable LIVER: Unremarkable BILIARY SYSTEM: Gallbladder is now surgically absent.. Bile ducts are not dilated. PANCREAS: Unremarkable SPLEEN: Unremarkable ADRENALS: Unremarkable KIDNEYS & URETERS: Unremarkable BLADDER: Unremarkable REPRODUCTIVE ORGANS: Myomatous uterus GASTROINTESTINAL: The stomach, small bowel, and colon are unremarkable. The appendix is normal. MESENTERY/PERITONEUM/RETROPERITONEUM: Unremarkable VASCULAR: Unremarkable LYMPH NODES: No adenopathy OSSEOUS & SOFT TISSUES: Ventral abdominal wall superficial to the hepatic segment 3 shows fat-contai radha ventral hernia containing fat, measuring 3.3 cm transverse and 3.3 cm craniocaudal (axial image 25 of series 2, coronal image 6 of series 4). IMPRESSION: Small, fat-containing ventral abdominal wall hernia postcholecystectomy, measuring 3.3 x 3.3 cm in th e upper abdomen near midline as described. Electronically signed by: Todd Reyes MD (05/25/2020 5:56 PM) [id number]
== END ==
LOC: CT 07:51
PROVIDERS: ATTEND Surgery
DX: K43.9 Ventral hernia without obstruction or gangrene (principal); D25.9 Leiomyoma of uterus, unspecified; Z90.49 Acquired absence of other specified parts of digestive tract
CPT/HCPCS: 74177; Q9966; Q9967

== ENCOUNTER → 2020-06-04 | Outpatient (CLI) | payer BC ==
[~2020-06-04] MED LIST changes: -CONTRAST GIVEN. MC PRN; -IOHEXOL 240 MG/ML 50ML VIAL. PO ONE; -IOHEXOL 300 MG/ML 100ML VIAL. IV ONE
== END ==
LOC: LAB 13:43
PROVIDERS: ATTEND Surgery
DX: Z01.812 Encounter for preprocedural laboratory examination (principal); K43.9 Ventral hernia without obstruction or gangrene; Z20.828 Contact with and (suspected) exposure to other viral communicable diseases
CPT/HCPCS: U0003

== ENCOUNTER 2020-06-08 07:44 | Day surgery (SDC) | payer BC ==
[~2020-06-08] VITALS: Ht 162.6 cm; Wt 78.5 kg
[2020-06-08] MEDS ORDERED: LAMO150T3 PO (08:05)
[2020-06-08] MEDS: IV RINGERS,LACTATED 1000ML 1,000 ML IV SCH ×2 (08:14→10:40)
[2020-06-08] MEDS ORDERED: DEXAMETHASONE SOD PHOS 4 MG/ML VIAL ONE (08:19)
[2020-06-08] MEDS ORDERED: LIDOCAINE 2% PF 5 ML VIAL. ONE (08:19)
[2020-06-08] MEDS ORDERED: PROPOFOL 10 MG/ML (20ML) VIAL. IV ONE (08:19)
[2020-06-08] MEDS ORDERED: fentaNYL PF VIAL 100 MCG/2 ML VIAL ONE ×3 (08:19→11:47)
[2020-06-08] MEDS ORDERED: ROCURONIUM 50 MG/5 ML VIAL. ONE (08:19)
[2020-06-08] MEDS ORDERED: SUCCINYLCHOLINE 200 MG/10 ML VIAL. ONE (08:19)
[2020-06-08] MEDS ORDERED: MIDAZOLAM HCL/PF 2 MG/2 ML VIAL. ONE (08:20)
[2020-06-08] MEDS ORDERED: KETOROLAC 30 MG/ML VIAL. ONE (09:38)
[2020-06-08] MEDS ORDERED: NEOSTIGMINE METHYLSULFATE 5 MG/5 ML SYRINGE. ONE (09:38)
[2020-06-08] MEDS ORDERED: GLYCOPYRROLATE 1 MG/5 ML VIAL. ONE (09:39)
[2020-06-08] MEDS ORDERED: SEVOFLURANE 61 TO 120 MINUTES. IH ONE (10:17)
--- NOTE | 2020-06-08 10:17 | DISCH ---
DISCHARGE INSTRUCTIONS Condition on Discharge Condition on Discharge: Stable Activity After Discharge Activity Instructions for Disc: Other, see below (no lifting over 20 lbs, s trenuous activity X 6 weeks, keep abdominal binder on when out of bed) Diet after Discharge Diet after Discharge: Regular Wound Incision Care Wound/Incision Care: Other, see below (keep dressing clean and dry X 72 hours, may then remove and shower) Follow-Up Follow up with: Dr Alan in office in 2 weeks, call for appointment [phone] CHRIS ALAN MD Jun 08, 2020 10:17
--- NOTE | 2020-06-08 10:22 | PDOC4 ---
Operative Note Operative Note Operative Note: Preoperative Diagnosis: Ventral hernia Postoperative Diagnosis: Same Procedure: Ventral hernia repair with mesh Surgeon: Aneesh Maintenance Mechanic: Sera ZUNIGA Anesthesia: Gen EBL: 20 ml Specimen: None Drains: None Complications: None Indication: The patient is a 40-year-old female who underwent prior cholecystectomy. She returned with a ventral hernia in the upper abdomen. The details of surgical repair of the hernia were discussed. The risks were noted which include bleeding, infection, recurrence, pain, anesthetic risk, visceral injury, potential need for additional surgery procedure. She understands and would like to proceed. Description: The patient was taken to the operating room and placed supine on the operating table. General anesthesia was performed. The abdomen is prepped with ChloraPrep and draped with sterile towels, sheets, and an Ioban. A vertical midline incision was made in the upper abdomen and the location of the hernia. Cautery dissection was carried down to the fascia. With cautery dissection the edges of the fascial defect were clearly delineated. Efforts were made to develop a preperitoneal plane around the edges of the hernia defect. This was somewhat difficult in areas where the peritoneum had been scarred in. Gradually we were able to free a preperitoneal plane. A circular Ventrio ST mesh was then placed in this plane. The mesh was sutured into position around its periphery using 0 Prolene in a horizontal mattress fashion. Dissolvable tacks were then placed in between the stitches for abdominal f ixation. The fascial edges were closed over the mesh with 0 Prolene. The deep subcutaneous tissues were approximated with 0 Vicryl. The superficial subcutaneous tissues were closed with 3-0 Vicryl. The skin was approximated with 4 Monocryl. A sterile dressing was then applied. The patient tolerated the procedure well and was sent to the recovery room in stable condition. At the end of the case all counts were correct. CHRIS ALAN MD Jun 08, 2020 10:22
[2020-06-08] MEDS ORDERED: OXYC-325 PO (10:25)
[2020-06-08] MEDS ORDERED: HYDROmorphone 2 MG/ML VIAL IV PRN (10:30)
[2020-06-08] MEDS ORDERED: IV RINGERS,LACTATED 1000ML 1,000 ML IV SCH (10:30)
[2020-06-08] MEDS ORDERED: LIDOCAINE 1% PF 2 ML VIAL. ID PRN (10:30)
[2020-06-08] MEDS ORDERED: ONDANSETRON PF 4 MG/2 ML VIAL. IV PRN (10:30)
[2020-06-08] MEDS ORDERED: PROCHLORPERAZINE 10 MG/2 ML VIAL. IV PRN (10:30)
[2020-06-08] MEDS ORDERED: oxyCODONE/APAP 5/325 1 TAB TABLET PO ONE ×2 (10:30)
[2020-06-08] MEDS ORDERED: fentaNYL PF VIAL 100 MCG/2 ML VIAL IV PRN (10:30)
[2020-06-08] MEDS ORDERED: MORPHINE SULFATE 2 MG/ML VIAL. IV PRN (10:30)
[2020-06-08] MEDS ORDERED: PROCHLORPERAZINE 10 MG/2 ML VIAL. ONE (11:06)
[2020-06-08] MEDS: fentaNYL PF VIAL 100 MCG/2 ML VIAL IV PRN ×3 (11:15→11:51)
[2020-06-08 12:30] VITALS: BP 117/62
== END 2020-06-08 13:11 | disposition home or self-care (01) ==
LOC: SURG 07:44
PROVIDERS: ATTEND Surgery
DX: K43.9 Ventral hernia without obstruction or gangrene (principal); M19.90 Unspecified osteoarthritis, unspecified site; E03.9 Hypothyroidism, unspecified; F32.9 Major depressive disorder, single episode, unspecified; Z90.49 Acquired absence of other specified parts of digestive tract; Z98.890 Other specified postprocedural states; Z79.899 Other long term (current) drug therapy
CPT/HCPCS: 49560; 49568; 81025; C1781; J0330; J0690; J0780; J1100; J1885; J2250; J2704; J2710; J3010; J3490; J7120